=== PATIENT | male | born 1965 | race African-American/Black ===

== ENCOUNTER 2017-03-28 22:51 | Emergency (ER) | payer OTHER ==
[~2017-03-28] VITALS: Ht 172.7 cm; Wt 96.2 kg
[2017-03-28] MEDS ORDERED: KAZANO 12.5-1,1 EACH ORAL (23:02)
[2017-03-28] MEDS ORDERED: AMLODIPINE BESY10 MG ORAL (23:02)
[2017-03-28] MEDS ORDERED: Aspirin Baby 81mg ORAL ONE (23:30)
[2017-03-28] MEDS ORDERED: Metoprolol Tartrate 50mg tab ORAL ONE (23:30)
--- NOTE | 2017-03-28 23:33 | Emergency Room Report ---
History of Present Illness General Chief Complaint: Chest Pain Source: Patient Present Illness HPI Is a 51-year-old male with history of diabetes and high blood pressure. He also a cigar smoker. No family history of cardiac. He presents with intermittent 2 day history of left arm numbness and then left-sided chest pain. Lasting only about a couple minutes. No diaphoresis. No exertional component. No nausea no vomiting. Denies any neck pain. Never had this problem before. Did not take his blood pressure medication tonight. Allergies: Coded Allergies: No Known Allergies (Unverified , 03/28/17) Patient History Past Medical History: see triage record, old chart reviewed, DM, HTN Past Surgical History: other Pertinent Family History: none Social History: Reports: smoking Immunizations: other Reviewed Nursing Documentation: PMH: Agreed, PSxH: Agreed Nursing Documentation-PMH Hx Hypertension: Yes Hx Diabetes: Yes Review of Systems Eye: Denies: blurred vision, eye pain ENT: Denies: ear pain, nose congestion, throat swelling Respiratory: Denies: cough, shortness of breath Cardiovascular: Reports: chest pain, Denies: palpitations Gastrointestinal: Denies: abdominal pain, diarrhea, nausea, vomiting Musculoskeletal: Denies: back pain, joint pain Skin: Denies: rash Neurological: Denies: headache, numbness Endocrine: Denies: increased thirst, increased urine Hematologic/Lymphatic: Denies: easy bruising All Other Systems: negative except mentioned in HPI Physical Exam Vital Signs Date Time Temp Pulse Resp B/P Pulse Ox O2 Delivery O2 Flow Rate FiO2 03/28/17 22:57 97.7 81 18 163/100 98 vitals with high blood pressure Sp02 EP Interpretation: reviewed, normal General Appearance: well appearing, no apparent distress, alert Head: normocephalic, atraumatic Eyes: bilateral eye EOMI, bilateral eye PERRL ENT: hearing grossly normal, normal pharynx Neck: full range of motion, supple, no meningismus Respiratory: chest non-tender, lungs clear, normal breath sounds Cardiovascular #1: regular rate, rhythm, no murmur Gastrointestinal: normal bowel sounds, non tender, no mass, no organomegaly, no bruit, non-distended Musculoskeletal: back normal, gait/station normal, normal range of motion Psychiatric: mood/affect normal Skin: warm/dry Medical Decision Making Diagnostic Impression: Primary Impression: Chest pain Qualified Codes: R07.9 - Chest pain, unspecified Additional Impressions: Paresthesia Hypertension Qualified Codes: I10 - Essential (primary) hypertension Hyperglycemia due to type 2 diabetes mellitus Qualified Codes: E11.65 - Type 2 diabetes mellitus with hyperglycemia ER Course Patient presents with atypical chest pain with paresthesia of his left arm. Labs unremarkable except for elevated glucose. He does have risk factor in his weight, high blood pressure, diabetes and smoking. I offered admission for further workup and cardiology consult. Patient said he fell better now he does not want to stay. He was to followup with his primary care DrAnel and referral to see a elevator adjuster. Patient is competent to make that decision. Lab Results Impression labs with elevated glucose EKG Diagnostic Results EKG Time: 23:33 Rate: normal Rhythm: NSR ST Segments: no acute changes Rhythm Strip Diag. Results Rhythm Strip Time: 23:33 EP Interpretation: yes Rate: 73 Rhythm: NSR, no PVC's, no ectopy Chest X-Ray Diagnostic Results Chest X-Ray Diagnostic Results : Chest X-Ray Ordered: Yes # of Views/Limited/Complete: 1 View Indication: Chest Pain EP Interpretation: Yes Interpretation: no consolidation, no effusion, no pneumothorax, no acute cardiopulmonary disease Impression: No acute disease Interpreting ER Provider: Electronically signed by Luis Armando Dumont MD Last Vital Signs Date Time Temp Pulse Resp B/P Pulse Ox O2 Delivery O2 Flow Rate FiO2 03/28/17 22:57 97.7 81 18 163/100 98 Status: improved Disposition: HOME, SELF-CARE Condition: Stable Scripts Aspirin* (ASPIR 81*) 81 Mg Tablet. 81 MG ORAL DAILY, #30 TAB Prov: LUIS ARMANDO DUMONT M.D. 03/29/17 Patient Instructions: Nonspecific Chest Pain Additional Instructions: Followup with your DrAnel in one to 2 days. No strenuous activity. Take your aspirin. You would need a referral to see a elevator adjuster for further testing. Return or call 911 if having chest pain. LUIS ARMANDO DUMONT M.D. Mar 28, 2017 23:33
[2017-03-28 23:48] LABS: MEAN CORPUSCULAR HGB CONC 35.5 G/DL (32.0-36.0); MEAN CORPUSCULAR VOLUME 90 FL (80-99); MEAN PLATELET VOLUME 10.1 FL (6.5-10.1); PLATELET COUNT 177 K/UL (150-450); RED BLOOD COUNT 4.88 M/UL (4.70-6.10); RED CELL DISTRIBUTION WIDTH 11.6 % (11.6-14.8); WHITE BLOOD COUNT 4.5 K/UL (4.8-10.8)
[2017-03-29 00:14] LABS: ALANINE AMINOTRANSFERASE 30 U/L (3-41); ALBUMIN/GLOBULIN RATIO 1.5 (1.0-2.7); ANION GAP 11 (5-15); ASPARTATE AMINO TRANSFERASE 30 U/L (5-40); CALCIUM 9.3 mg/dL (8.6-10.2); CARBON DIOXIDE 29 mEQ/L (20-30); CHLORIDE 98 mEQ/L (98-107); CREATININE 0.9 mg/dL (0.7-1.2); GLOMERULAR FILTRATION RATE > 60 mL/min (>60); HEMOLYSIS 8; POTASSIUM 4.1 mEQ/L (3.4-4.9); SODIUM 138 mEQ/L (135-145); TOTAL PROTEIN 7.4 g/dL (6.6-8.7); TROPONIN I < 0.30 ng/mL (<=0.30)
[2017-03-29 00:24] LABS: CKMB < 1.5 ng/mL (< 6.7)
[2017-03-29] MEDS ORDERED: ASPIR 8181 MG ORAL (00:34)
[2017-03-29 00:37] VITALS: BP 154/94
[2017-03-29 00:38] VITALS: BP 156/94
--- NOTE | 2017-03-29 09:55 | Diagnostic Imaging Report ---
Indications: Chest pain Technique: Portable AP chest Findings: Comparison: 10/15/2010 Inspiratory effort has decreased. Size of the cardiac silhouette has apparently increased. Pulmonary vasculature remains within normal limits. Visualized portions of lungs and pleura remain clear. Bones and extra pulmonary soft tissues unremarkable. IMPRESSION: Apparent increase in heart size likely technically related. Developing cardiomyopathy and/or pericardial effusion not entirely excludable. Otherwise no evidence of acute disease, limited as described. Basal abnormalities may be missed. Upright PA and lateral chest radiographs with better inspiratory effort and optimal technique recommended for more complete evaluation.
--- NOTE | 2017-03-29 15:15 | Cardiology Report ---
APPROVED REPORT EKG Measurement Heart [id number] Normal sinus rhythm Normal ECG
== END 2017-03-29 00:45 | disposition home or self-care (01) ==
LOC: EMR 23:05
DX: R07.9 Chest pain, unspecified (principal); I10 Essential (primary) hypertension; E11.65 Type 2 diabetes mellitus with hyperglycemia; F17.200 Nicotine dependence, unspecified, uncomplicated
CPT/HCPCS: 36415; 71010; 80053; 82550; 82553; 84484; 85025; 93005; 99284